=== PATIENT | female | born 1980 | race Caucasian/White ===

== ENCOUNTER → 2022-11-11 | Outpatient (CLI) | payer OTHER, BC ==
[~2022-11-11] MED LIST: AMOX1XR PO; AMOX500 PO; CYCL10 PO; HYDACE10B PO; HYDACE5 PO; HYDCHL12.5 PO; HYDPAM25 PO; IBUP800 PO; LOSA25 PO; Lyrica75 MG PO; NAPR500 PO; NO RX MEDS; OXYC5 PO; PANT40 PO; RXHYDACE PO; SERT100 PO; SULF10OPO OP
== END ==
LOC: PLD 07:21 → LAB SHORT 07:21
DX: R23.4 Changes in skin texture (principal); L53.9 Erythematous condition, unspecified
CPT/HCPCS: 88312